=== PATIENT | male | born 2000 | race Hispanic/Latino ===

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

== ENCOUNTER 2022-04-30 01:42 | Emergency (ER) | payer MEDICAID ==
[~2022-04-30] VITALS: Ht 167.6 cm; Wt 88.6 kg
[~2022-04-30 01:42] MED LIST changes: +TAM75CAP PO
[2022-04-30] MEDS ORDERED: LORTAB 1010 MG PO (02:06)
[2022-04-30] MEDS ORDERED: AMOXICILLIN500 MG PO (02:06)
[2022-04-30 02:10] VITALS: BP 151/84
== END 2022-04-30 02:12 | disposition home or self-care (01) ==
LOC: ED 01:42
DX: K04.7 Periapical abscess without sinus (principal); S02.5XXA Fracture of tooth (traumatic), initial encounter for closed fracture; X58.XXXA Exposure to other specified factors, initial encounter

== ENCOUNTER 2022-11-11 13:14 | Emergency (ER) | payer MEDICAID ==
[~2022-11-11] VITALS: Ht 167.6 cm; Wt 83.9 kg
[~2022-11-11 13:14] MED LIST changes: +LORTAB 1010 MG PO
[2022-11-11 13:25] VITALS: BP 133/86
[2022-11-11 13:30] VITALS: BP 130/88
[2022-11-11] MEDS ORDERED: CLINDAMYCIN300 M1 PO (13:32)
[2022-11-11 13:45] VITALS: BP 132/83
== END 2022-11-11 13:50 | disposition home or self-care (01) ==
LOC: ED 13:14
DX: K08.89 Other specified disorders of teeth and supporting structures (principal)